=== PATIENT | female | born 1965 | race Caucasian/White ===

== ENCOUNTER 2024-08-11 14:06 | Emergency (ER) | payer OTHER, SELFPAY ==
--- NOTE | ~2024-08-11 | XR_ITS ---
CLINICAL HISTORY: swelling pain 4 view left wrist Comparison: None Findings: Bones intact. No dislocations. No significant arthritic change or erosions. No radiopaque foreign body. IMPRESSION: 1. No acute findings This document has been electronically signed by: Delgado Marquis MD on 08/11/2024 15:58:31
--- NOTE | ~2024-08-11 | XR_ITS ---
CLINICAL HISTORY: swelling pain 2 view left forearm Comparison: None Findings: No fractures or dislocations. No joint effusion. No significant arthritic change. No radiopaque foreign body. IMPRESSION: No acute findings This document has been electronically signed by: Delgado Marquis MD on 08/11/2024 15:57:57
[2024-08-11 14:58] VITALS: BP 148/104; PULSE 77; RESP 18; TEMP 36.8; O2SAT 97; BMI 25.1
--- NOTE | 2024-08-11 14:58 | ED.GENADULT ---
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 She was holding a hair brush in her left hand and brushing the patient is here with the left hand when she had a sudden pain in her left volar forearm that was extremely intense so that the brush dropped from her hand. She says that it was so painful she felt as if she had broken out in a sweat. She felt like there was swelling on the volar aspect of the wrist. She has had problems with her hands because of rheumatoid nodules and she sees a hand specialists at [facility] but she has never had an episode of pain like this before. The pain has subsided significantly while waiting to be seen in the emergency room. No numbness or tingling in the fingers. Related Data Allergies Allergy/AdvReac Type Severity Reaction Status Date / Time Penicillins [PENICILLINS] Allergy Mild HIVES Verified 08/11/24 15:05 sulfamethoxazole Allergy Mild HIVES Verified 08/11/24 15:05 [From BACTRIM] trimethoprim [From BACTRIM] Allergy Mild HIVES Verified 08/11/24 15:05 acetaminophen [From Vicodin] AdvReac Mild NAUSEOUS Verified 08/11/24 15:05 hydrocodone [From Vicodin] AdvReac Mild NAUSEOUS Verified 08/11/24 15:05 cefdinir [CEFDINIR] AdvReac Unknown ABD PAIN Verified 08/11/24 15:05 Review of Systems Review of Systems: Yes all other systems are reviewed and are negative [facility] Social History Social History Advance Directives: No Advance Directives Information Provided: No Physical Exam ED Vital Signs: Vital Signs - 24 hr 08/11/24 14:58 08/11/24 21:12 Temperature 98.3 F 98.3 F Pulse Rate 77 77 Respiratory Rate 18 18 Blood Pressure 148/104 H 148/104 H Pulse Oximetry 97 97 Oxygen Delivery Method Room Air Room Air BMI result Body Mass Index 25.1 Const Other: the patient is awake, alert, pleasant, cooperative. She does not appear in acute distress. HENMT Other: The face is symmetrical, mucous membranes moist. Eyes General: appearance normal, both eyes and all related structures Neck Neck: Yes normal visual inspection and Yes full ROM Resp Effort & Inspection: normal respiratory effort Auscultation: clear to auscultation bilaterally Cardio Rate: regular rate Rhythm: regular rhythm Heart sounds: S1 normal heart sound present and S2 normal heart sound present Skin Other: The skin of the left forearm and hand is intact. There may be some very mild swelling on the ulnar side of the wrist but this is an equivocal finding. There is certainly no discrete swelling. No erythema. Neuro Other: The patient is awake and alert with a normal mental status. She has normal sensation in all of the fingertips of the left hand. She is able to use the fingers of the left hand normally although she has pain when she closes her fist. Extrem Other: The left hand is neurovascularly intact. She has some tenderness along the volar aspect of the wrist but I do not appreciate any definite loss of wrist function or flexor function of any finger. Course Course Course Narrative: This is a Rapid Medical Exam performed in triage by Opal Mishra PA-C. Full HPI, ROS and PE to be performed by primary ED provider. 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 PE: +swelling to L wrist/forearm with ttp. NV intact. ROM intact w/pain Plan: XR Medical Decision Making Medical Decision Making MDM Narrative: X-rays were ordered at triage. X-rays of the left forearm and left wrist. These x-rays are negative. Clinically the patient seems to have had some kind of acute pain in the left wrist and volar forearm which I suspect is some kind of an overuse injury. She is neurovascularly intact. She already sees some kind of a hand specialist at [facility]. She will be given a Velcro left wrist splint and a sling for comfort and should follow up with her hand doctor at [facility]. Discharge Plan Discharge Clinical Impression: Left wrist sprain Patient Disposition: Home, Self-Care Additional Instructions: Please wear the wrist splint and the sling as provided. Keep your arm elevated. Use ibuprofen and/or acetaminophen as needed for pain. Rest the arm until you follow up with [facility]. Return to the emergency room if acutely worse. Referrals: [facility] [Provider Group] (Acute left forearm pain) Yuki Ignacio NP [Primary Care Provider] - Interventions: ED Discharge Assessment Last Done: 08/11/24 21:12 Discharge Date/Time: 08/11/24 21:12 Print Language: [place]i
[2024-08-11 21:12] VITALS: BP 148/104; PULSE 77; RESP 18; TEMP 36.8; O2SAT 97
== END 2024-08-11 21:12 | disposition home or self-care (01) ==
PROVIDERS: Emergency Provider Emergency Medicine; PCP Nurse Practitioner Family
DX: S63.502A Unspecified sprain of left wrist, initial encounter (principal); X58.XXXA Exposure to other specified factors, initial encounter; Y93.9 Activity, unspecified; Y92.9 Unspecified place or not applicable; Y99.9 Unspecified external cause status
CPT/HCPCS: 73090; 73110; 99283

== ENCOUNTER → 2024-08-11 15:02 | Outpatient (BNV) | payer OTHER, SELFPAY | PROVIDERS: PCP Nurse Practitioner Family; Visit Provider Nuclear Medicine | DX: R22.32 Localized swelling, mass and lump, left upper limb (principal) | CPT/HCPCS: 73090; 73110 ==